=== PATIENT | male | born 1930 ===

== ENCOUNTER 2016-09-15 11:39 | Day surgery (SDC) | payer MEDICARE, OTHER ==
[2016-09-15 11:54] VITALS: BMI 21.9
[2016-09-15 12:18] LABS: BASO # 0.1 K/uL (0.0-0.2); BASO % 1.1 % (0.0-2.0); EOS # 0.3 K/uL (0.0-0.7); EOS % 6.1 % (0.0-4.0); HEMATOCRIT 37.5 % (35.0-51.0); LYMPH # 1.3 K/uL (1.0-4.3); LYMPH % 25.8 % (20.0-40.0); MEAN CORPUSCULAR HEMOGLOBIN 29.6 pg (27.0-31.0); MEAN PLATELET VOLUME 8.9 fL (7.2-11.7); MONO # 0.6 K/uL (0.0-0.8); MONO % 11.5 % (0.0-10.0); RED CELL DISTRIBUTION WIDTH 15.5 % (11.5-14.5); WHITE BLOOD COUNT 4.9 K/uL (4.8-10.8)
[2016-09-15 12:20] LABS: MEAN CELL VOLUME 89.7 fL (80.0-94.0)
[2016-09-15 12:25] LABS: CHLORIDE 101 mmol/L (98-107); POTASSIUM 4.1 mmol/L (3.6-5.2); SODIUM 140 mmol/L (132-148)
[2016-09-15 12:28] LABS: BLOOD UREA NITROGEN 15 mg/dL (9-20); CARBON DIOXIDE 29 mmol/L (22-30); GFR AFRICAN-AMERICAN > 60; GLUCOSE,RANDOM 102 mg/dL (75-110)
[2016-09-15 12:29] LABS: CALCIUM 9.1 mg/dl (8.6-10.4); INR 1.2
--- NOTE | 2016-09-15 14:07 | CP.SDSHP ---
Same Day Surgery H & P - History Proposed Procedure: Right IJV port placement Pre-Op Diagnosis: Laryngeal cancer - Allergies Allergies: Allergies No Known Allergies Allergy (Verified 11/16/14 14:03) - Physical Exam Vital Signs: Vital Signs 09/15/16 12:33 Temperature 97.6 F Pulse Rate 67 Respiratory 20 Rate Blood Pressure 126/80 O2 Sat by Pulse 97 Oximetry Mental Status: Alert & Oriented x3 Neuro: WNL Heart: WNL Lungs: WNL - Impression Impression: Pt with laryngeal cancer and tracheostomy referred for port placement. Informed consent obtained and risk of infection and bleeding. Pt. Evaluated Today:Candidate for Anesthesia & Procedure: Yes (ASA 3 ) - Date & Time Date: 09/15/16 Time: 14:00 Short Stay Discharge - Short Stay Discharge Admitting Diagnosis/Reason for Visit: LARYNGEAL CANCER Disposition: HOME/ ROUTINE
[2016-09-15] MEDS ORDERED: Midazolam 2 MG/2 ML VIAL ONE (14:26)
[2016-09-15] MEDS ORDERED: Etomidate 20 mg/10ml Inj IV ONE (14:31)
[2016-09-15] MEDS ORDERED: ceFAZolin IV 1 gm in Dextrose 1 GM/50 ML BAG IVPB ONE (14:32)
[2016-09-15] MEDS ORDERED: Lidocaine 2% Inj (20ml) ONE (14:33)
--- NOTE | 2016-09-15 15:05 | PCM.SURG1 ---
Surgeon's Initial Post Op Note - Surgeon's Notes Surgeon: Trip Sandhu MD High Reach Operator: NONE Type of Anesthesia: IV Sedation Pre-Operative Diagnosis: Laryngeal cancer Operative Findings: Patent right IJV Post-Operative Diagnosis: Laryngeal cancer Operation Performed: Single lumen picc placement right IJV. Tip in SVC. Specimen/Specimens Removed: None Estimated Blood Loss: EBL {In ML}: 3 Blood Products Given: N/A Drains Used: No Drains Post-Op Condition: Fair Date of Surgery/Procedure: 09/15/16 Time of Surgery/Procedure: 15:00
[2016-09-15 16:36] VITALS: BP 126/85; PULSE 72; RESP 18; TEMP 97.8; O2SAT 98
--- NOTE | 2016-09-17 00:22 | CARD ---
APPROVED REPORT EKG Measurement Heart [id number] <Conclusion> Sinus bradycardia Otherwise normal ECG
== END 2016-09-15 16:20 | disposition home or self-care (01) ==
LOC: C.SPRAD 11:39
PROVIDERS: ATTEND Radiology Vascular & Interventional Radiology
DX: C32.9 Malignant neoplasm of larynx, unspecified (principal); Z93.0 Tracheostomy status